=== PATIENT | male | born 1960 | race Caucasian/White ===

== ENCOUNTER 2025-05-06 07:31 | Outpatient (CLI) | payer MEDICARE ==
[2025-05-06 08:23] LABS: Estimated GFR - POC 95.0
== END 2025-05-06 07:32 | disposition home or self-care (01) ==
LOC: SCSMRI 07:31
PROVIDERS: ATTEND Urology
DX: C61 Malignant neoplasm of prostate (principal)
CPT/HCPCS: 36415; 72197; 82565